=== PATIENT | female | born 1975 | race Caucasian/White ===

== ENCOUNTER 2022-07-06 12:48 | Emergency (ER) | payer BC ==
[2022-07-06 13:18] VITALS: BP 154/92; PULSE 84; RESP 16; TEMP 97.3; BMI 35.2
[2022-07-06] MEDS ORDERED: ACETAMINOPHEN 325 MG TABLET (FP) PO ONE (14:27)
[2022-07-06] MEDS ORDERED: ACETAMINOPHEN 325 MG TABLET (FP) ONE (15:06)
[2022-07-06 15:54] LABS: BASO % 0.8 % (0-2.0); EOS % 0.4 % (0-4.5); HEMATOCRIT 40.8 % (32.4-45.2); HEMOGLOBIN 13.6 GM/dL (10.7-15.3); LYMPH % 17.9 % (8-40); MCH 29.2 pg (25.7-33.7); MCHC 33.4 g/dl (32.0-36.0); MEAN CELL VOLUME 87.7 fl (80-96); MEAN PLT VOLUME 9.9 fl (7.5-11.1); MONO % 6.9 % (3.8-10.2); PLATELET COUNT 265 10^3/uL (134-434); RBC 4.65 M/mm3 (3.60-5.2); RDW 13.2 % (11.6-15.6); WHITE BLOOD COUNT 6.4 K/mm3 (4.0-10.0)
[2022-07-06 16:05] LABS: INR 1.01 (0.83-1.09); PROTHROMBIN TIME (PATIENT) 11.6 SEC (9.7-13.0)
[2022-07-06 16:07] LABS: ACTIVATED PTT 31.8 SECONDS (25.2-36.5)
[2022-07-06 16:22] LABS: BLOOD UREA NITROGEN 9.9 mg/dL (7-18); MAGNESIUM 2.3 mg/dL (1.8-2.4)
[2022-07-06 16:25] LABS: CREATININE 0.7 mg/dL (0.55-1.3)
[2022-07-06 16:26] LABS: BILIRUBIN,TOTAL 0.4 mg/dL (0.2-1)
[2022-07-06 16:27] LABS: TOT PROT 7.5 g/dl (6.4-8.2)
[2022-07-06 16:30] LABS: N-TERMINAL BNP 50.5 pg/ml (5-125)
== END 2022-07-06 19:17 | disposition home or self-care (01) ==
LOC: JER 12:48
DX: R07.9 Chest pain, unspecified (principal)
CPT/HCPCS: 36415; 71045-TC-FY; 80053; 83735; 83880; 84484; 84703; 85025; 85610; 85730; 93005; 93010; 99284-25